=== PATIENT | female | born 1980 | race Caucasian/White ===

== ENCOUNTER 2023-01-21 15:15 | Emergency (ER) | payer BC, SELFPAY ==
[2023-01-21 15:16] VITALS: BP 121/78; PULSE 74; RESP 18; TEMP 36.8; O2SAT 99; BMI 18.8
--- NOTE | 2023-01-21 16:01 | EXP.UTC ---
Discharge Plan Disposition Patient Disposition: Home, Self-Care Condition: Good Prescriptions Prescriptions: New triamcinolone acetonide 0.1 % cream 1 applic topical BID PRN (Reason: itching) Qty: 30 0RF methylprednisolone 4 mg Tablets,Dose Pack 4 mg PO DIRECTED Qty: 21 0RF acyclovir 800 mg tablet 800 mg PO 5XDAY 7 Days Qty: 35 0RF Referrals Follow up/Referrals: Saeid Mcelroy MD [Primary Care Provider] - See instructions Activity Restrictions/Add. Instructions Additional Instructions/Restrictions: Try to identify and avoid contact with the offending substance. Don't start the oral steroids until tomorrow. Don't put the topical steroids (triamcinolone) on your face or your groin. Follow up with your regular doctor. GO TO THE ER FOR ANY WORSENING SYMPTOMS OR CONCERNS Clinical Impressions Clinical Impression: Contact dermatitis Instructions Patient Instructions: Contact Dermatitis, DI for Contact Dermatitis Discharge ED Provider: Vinny Engel [facility] General Stated complaint: rash on RT arm Mode of Arrival: Ambulatory Source of Information: Patient Limitations: No Limitations Time Seen by Provider: 01/21/23 16:01 Description of Symptoms (Recalled from Triage Doc. by RN): Patient reports rash on right elbow since this morning. Complaint of burning and itch. HEENT Symptoms (Recalled from RN notes): No Resp Symptoms (Recalled from RN notes): No Skin Symptoms (Recalled from RN notes): Yes MS Symptoms (Recalled from RN notes): No Functional Status (Recalled from RN notes): wnl History of Present Illness Provider Complaint: She has an irritated area on her right forearm that has been present for the past 4 days. Related Data Previous Rx's Medication Instructions Recorded acyclovir 800 mg tablet 800 mg PO 5XDAY 7 days #35 tabs 01/21/23 methylprednisolone 4 mg tablets in 4 mg PO DIRECTED #21 tabs 01/21/23 a dose pack triamcinolone acetonide 0.1 % 1 applic topical BID PRN itching 01/21/23 topical cream #30 grams Allergies Allergy/AdvReac Type Severity Reaction Status Date / Time No Known Allergies Allergy Unverified 06/26/17 14:34 Worker's Comp Is this a Worker's Comp case?: No [facility] Disclaimer: The information contained in this section may have been updated after the patient was seen, as this information can be updated by other users. Social History Smoking Status: Never smoker alcohol intake: never current occupational status: employed Travel in the last 8 weeks: None ROS Obtained: Yes All systems reviewed & no additional complaints except as documented Constitutional Constitutional: Denies chills and Denies fever(s) Eyes Eyes: Denies eye discharge ENT Ears, Nose, Mouth, and Throat: Denies dizziness, Denies otalgia and Denies sore throat Cardiovascular Cardiovascular: Denies chest pain Respiratory Respiratory: Denies shortness of breath, Denies chest congestion, Denies cough, Denies stridor and Denies wheezing Gastrointestinal Gastrointestingal: Denies nausea or vomiting Musculoskeletal Musculoskeletal: Reports system reviewed and no additional complaints, except as documented and Denies arthralgias Integumentary/Breasts Skin/Breast: Reports as per HPI and Reports rash Neurologic Neurologic: Denies dizziness and Denies paresthesias Allergic/Immunologic Allergic/Immunologic: Denies wheezing Physical Exam General General appearance: alert and in no apparent distress Head Head exam: atraumatic, normocephalic and normal inspection Eye Eye exam: Present normal appearance, PERRL and EOMI ENT ENT exam: Present normal exam, normal oropharynx, mucous membranes moist, TM's normal bilaterally and normal external ear exam Neck Neck exam: Present normal inspection, full ROM and trachea midline; Absent meningismus or lymphadenopathy Chest Chest inspection: Present normal inspection and symmetric chest wall rise; Absent tenderness Respi
[2023-01-21 16:14] VITALS: BP 121/78; PULSE 74; RESP 18; TEMP 36.8; O2SAT 99
== END 2023-01-21 16:16 | disposition home or self-care (01) ==
PROVIDERS: Emergency Provider Nurse Practitioner Family; PCP Family Medicine
DX: L25.9 Unspecified contact dermatitis, unspecified cause (principal)
CPT/HCPCS: 96372; 99204; 99212; G0463